=== PATIENT | female | born 1955 | race Caucasian/White ===

== ENCOUNTER → 2017-10-22 09:22 | Outpatient (CLI) | payer OTHER, SELFPAY ==
[2017-10-22 12:18] LABS: Anion Gap 8 (5-15); BUN 12 mg/dL (7-18); BUN/Creat Ratio 16.8 RATIO (10-20); Calcium,Total 8.9 mg/dL (8.5-10.1); Chloride 107 mmol/L (98-107); Creatinine, Serum 0.71 mg/dL (0.55-1.02); EST Glomerular Filtration Rate 88 mL/min (>60); Est Glom Filt Rate - Afr Amer 107 mL/min (>60); Glucose 105 mg/dL (74-106); Potassium 3.8 mmol/L (3.5-5.1); Sodium Level 140 mmol/L (136-145)
== END ==
PROVIDERS: Family Provider Family Medicine; PCP Family Medicine; Visit Provider Family Medicine
DX: I10 Essential (primary) hypertension (principal)
CPT/HCPCS: 36415; 80048

== ENCOUNTER → 2018-01-07 09:10 | Outpatient (CLI) | payer OTHER, SELFPAY ==
[2017-12-31 11:02] LABS: Absolute Lymphocyte Count 2.48 X10^3/ul (0.83-4.51); Absolute Neutrophil Count 3.2 X10^3/uL (2.0-7.7); Basophil# 0.03 X10^3/uL; Basophil% 0.5 % (0-1); Eosinophil# 0.21 X10^3/uL; Eosinophils% 3.3 % (0-5); Hematocrit 37.2 % (37-47); Lymphocyte # 2.48 X10^3/ul (4.0); Lymphocyte % 38.4 % (19-41); Mean Corp Hgb Conc 32.3 g/gl (32-36); Mean Corpuscular Hgb 26.6 pg (27.0-32.0); Mean Corpuscular Volume 82.5 fL (81-99); Mean Platelet Vol. 9.7 fl (6.2-12.0); Monocyte# 0.55 X10^3/uL; Monocyte% 8.5 % (0-10); Neutrophil # 3.16 X10^3/uL (2.7-7.7); Platelet Count 474 K/mm3 (150-450); RBC Distribution Width SD 41.2 fl (35.1-43.9); Red Blood Count 4.51 M/mm3 (4.2-5.4); White Blood Count 6.5 K/mm3 (4.4-11.0)
[2017-12-31 11:08] LABS: POSITIVE COUNT NO; POSITIVE DIFFERENTIAL NO; POSITIVE MORPHOLOGY NO
[2017-12-31 11:14] LABS: ALB/GLOB Ratio 0.7 RATIO (0.9-2.4); AST(SGOT) 11 U/L (15-37); Alanine Aminotransfer ALT/SGPT 18 U/L (13-56); Albumin, Serum 3.3 g/dL (3.2-5.0); Alkaline Phosphatase 74 U/L (45-117); Anion Gap 9 (5-15); BUN 16 mg/dL (7-18); BUN/Creat Ratio 20.7 RATIO (10-20); Calcium,Total 9.4 mg/dL (8.5-10.1); Chloride 105 mmol/L (98-107); Cholesterol 178 mg/dL (200); Creatinine, Serum 0.77 mg/dL (0.55-1.02); EST Glomerular Filtration Rate 80 mL/min (>60); Est Glom Filt Rate - Afr Amer 97 mL/min (>60); Globulin 4.5 g/dL (2.2-4.2); Glucose 89 mg/dL (74-106); High Density Lipoprotein 47 mg/dL; Potassium 4.4 mmol/L (3.5-5.1); Protein, Total 7.8 g/dL (6.4-8.2); Sodium Level 141 mmol/L (136-145); Triglycerides 137 mg/dL; Very Low Density Lipoprotein 27 mg/dL (5-40)
--- NOTE | 2018-01-07 09:10 | DT_ITS ---
This patient was seen during an EMR downtime January 03, 2018 - January 10, 2018. This patient may have a combination of paper and electronic documentation or all paper documentation. All documentation is viewable within the e-chart portion of [employer] for each patient visit.
[2018-01-07 14:28] LABS: Rheumatoid Factor < 10.0 IU/mL (<15)
[2018-01-07 15:02] LABS: Hemoglobin 11.8 g/dl (12.0-15.0); Red Blood Count 4.41 M/mm3 (4.2-5.4)
[2018-01-07 15:03] LABS: Absolute Lymphocyte Count 2.78 X10^3/ul (0.83-4.51); Absolute Neutrophil Count 3.2 X10^3/uL (2.0-7.7); Basophil# 0.02 X10^3/uL; Basophil% 0.3 % (0-1); Eosinophil# 0.22 X10^3/uL; Eosinophils% 3.2 % (0-5); Hematocrit 36.6 % (37-47); Lymphocyte # 2.78 X10^3/ul (4.0); Mean Corp Hgb Conc 32.2 g/gl (32-36); Mean Corpuscular Hgb 26.8 pg (27.0-32.0); Mean Platelet Vol. 9.2 fl (6.2-12.0); Monocyte# 0.71 X10^3/uL; Monocyte% 10.2 % (0-10); Neutrophil # 3.21 X10^3/uL (2.7-7.7); Neutrophil % 46.2 % (47-70); POSITIVE COUNT NO; POSITIVE DIFFERENTIAL NO; POSITIVE MORPHOLOGY NO; Platelet Count 408 K/mm3 (150-450); RBC Distribution Width CV 14.3 % (11.6-14.6); RBC Distribution Width SD 42.9 fl (35.1-43.9)
[2018-01-14 16:11] LABS: Anti-Centromere B Ab <0.2 AI (0.0-0.9); Anti-Scleroderma-70 AB <0.2 AI (0.0-0.9); RNP Ab <0.2 AI (0.0-0.9); SJOGREN'S Anti-SS-A test < 0.2 AI (0.0-0.9); SJOGREN'S Anti-SS-B test < 0.2 AI (0.0-0.9); Smith Ab <0.2 AI (0.0-0.9)
[2018-01-14 18:15] LABS: CCP IgG Antibodies 9 units (0-19)
[2018-01-15 14:23] LABS: Anti-dsDNA Ab <1 IU/mL (0-9)
== END ==
PROVIDERS: Family Provider Family Medicine; PCP Family Medicine; Visit Provider Family Medicine
DX: Z00.00 Encounter for general adult medical examination without abnormal findings (principal); I10 Essential (primary) hypertension; D47.3 Essential (hemorrhagic) thrombocythemia; M25.50 Pain in unspecified joint
CPT/HCPCS: 36415; 80053; 80061; 85025; 86038; 86140; 86200; 86225; 86235; 86431

== ENCOUNTER 2018-07-13 08:03 | Inpatient (IN) | payer OTHER, SELFPAY ==
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
[2018-07-04 13:52] VITALS: BP 121/86; PULSE 71; RESP 16; TEMP 36.9; O2SAT 97; BMI 24.3
--- NOTE | 2018-07-04 13:57 | SDCEKG_ITS ---
Test Reason : Blood Pressure : / mmHG Vent. Rate : 067 BPM Atrial Rate : 067 BPM P-R Int : 164 ms QRS Dur : 082 ms QT Int : 376 ms P-R-T Axes : 060 065 043 degrees QTc Int : 397 ms Normal sinus rhythm Normal ECG Confirmed by JUAN ANTONIO RODGERS, MIRNA ([id number]), editor publications MARIXA BOLES ([id number]) on 07/05/2018 3:27:21 PM Referred By: Cam Garcia Confirmed By:MIRNA ROMANO MD
[2018-07-04 14:50] LABS: Absolute Lymphocyte Count 2.74 X10^3/ul (0.83-4.51); Absolute Neutrophil Count 3.8 X10^3/uL (2.0-7.7); Basophil# 0.03 X10^3/uL; Basophil% 0.4 % (0-1); Eosinophil# 0.19 X10^3/uL; Eosinophils% 2.6 % (0-5); Hemoglobin 10.9 g/dl (12.0-15.0); Lymphocyte # 2.74 X10^3/ul (4.0); Lymphocyte % 37.5 % (19-41); Mean Corp Hgb Conc 32.1 g/gl (32-36); Mean Corpuscular Hgb 26.9 pg (27.0-32.0); Mean Platelet Vol. 9.4 fl (6.2-12.0); Monocyte# 0.56 X10^3/uL; Monocyte% 7.7 % (0-10); Neutrophil # 3.76 X10^3/uL (2.7-7.7); Neutrophil % 51.5 % (47-70); Platelet Count 459 K/mm3 (150-450); RBC Distribution Width CV 14.4 % (11.6-14.6); RBC Distribution Width SD 43.4 fl (35.1-43.9); Red Blood Count 4.05 M/mm3 (4.2-5.4); White Blood Count 7.3 K/mm3 (4.4-11.0)
[2018-07-04 14:57] LABS: POSITIVE COUNT NO; POSITIVE DIFFERENTIAL NO; POSITIVE MORPHOLOGY NO
[2018-07-04 15:09] LABS: Anion Gap 9 (5-15); BUN 21 mg/dL (7-18); BUN/Creat Ratio 20.2 RATIO (10-20); Calcium,Total 9.1 mg/dL (8.5-10.1); Chloride 105 mmol/L (98-107); Creatinine, Serum 1.04 mg/dL (0.55-1.02); EST Glomerular Filtration Rate 57 mL/min (>60); Est Glom Filt Rate - Afr Amer 69 mL/min (>60); Estimated Creatinine Clearance 48.43 ml/min; Glucose 144 mg/dL (74-106); Potassium 3.8 mmol/L (3.5-5.1); Sodium Level 139 mmol/L (136-145)
--- NOTE | 2018-07-06 11:26 | CASEMGMT ---
Attempted to call patient on cell phone, . Female answered phone and hung up on this nurse when this nurse asked if Kelsey was available. Gloria Kim LPN Clinical Support
[2018-07-13] VITALS (11 sets, daily range): BP systolic 92–136; BP diastolic 49–89; PULSE 49–84; RESP 16–18; TEMP 36.1–37.1; O2SAT 98–100; BMI 24.3; BMI 23.9
--- NOTE | 2018-07-13 | HIP_PTH ---
PATIENT: DEEPA WARD LOC: MS3 U#:[id number] AGE/SX: 63/F ROOM: [facility] [place] RE07/13/[address]: Dr. Cam Garcia MD : [id number] BED: 1 DIS: 07/14/2018 SPEC #: [id number] RECD: 07/13/18 15:14 STATUS: BERTRAND REAron #: [id number] NIHCOLE: 07/13/18 00:[address]: Cam Garcia DEPT: SURGICAL PATHOLOGY RECD BY: Chauncey Dalal ENTERED: 07/13/18 15:14 SP TYPE: TOTAL HIP OTHR DR: Dr. Ty Carter DO Tissues: Hip, NOS Procedures: Decalcification bone/plaque Surgery Specimen Level IV HEADER OPERATION: Left total hip anterior approach PRE-OP DIAGNOSIS: Severe left hip osteoarthritis TISSUE SUBMITTED: Femoral head left MICROSCOPIC DIAGNOSIS Left femoral head, total hip resection: Severe degenerative joint disease. Mild synovial hyperplasia and associated mild chronic inflammation. AM:uvaldo 07/20/18 MICROSCOPIC DESCRIPTION Slides are reviewed. GROSS DESCRIPTION Received is one container designated femoral head left. The specimen consists of a deformed femoral head measuring 4.5 x 5 x 3 cm. The portion of femoral neck measures 0.5 cm in greatest length. A small piece of soft tissue attached to the femoral head measures 3 x 2.5 x 0.3 cm. The articular surface displays prominent osteophyte formation, eburnation and bone erosion. Commercial Teller sections are submitted in two cassettes as follows: 1 - soft tissue, 2 - bone after decalcification. / SJ:uvaldo 07/13/18 TC:5 CPT: 04819, 49706
--- NOTE | 2018-07-13 07:22 | RAD_ITS ---
STUDY: X-RAY - LEFT HIP REASON FOR EXAM: Female, 63 years old. Left hip replacement. TECHNIQUE: 2 views of the hip. COMPARISON: None. FINDINGS: The patient is status post left total hip replacement. There is good alignment. Postoperative soft tissue changes. RAD/Hip Min 2 Views (Portable) IMPRESSION: Status post left total hip replacement. There is good alignment. Postoperative soft tissue changes. Electronically Signed: Jasper Gibson MD at 13:00 EST Tel [phone], Service support ,
[2018-07-13] MEDS: Scopolamine 1mg/72hr Patch 1 PATCH TD (07:30)
[2018-07-13] MEDS: Acetaminophen 500 MG Tablet 1000 MG PO ×3 (08:53→21:52)
[2018-07-13] MEDS: Celecoxib 200 MG Capsule 400 MG PO (08:53)
[2018-07-13] MEDS: Lactated Ringers 1,000 ML 999 ML IV (09:20)
--- NOTE | 2018-07-13 10:55 | RAD_ITS ---
STUDY: X-RAY - LEFT HIP REASON FOR EXAM: Female, 63 years old. Left hip replacement. TECHNIQUE: 2 views of the hip. COMPARISON: None. FINDINGS: Intraoperative imaging provided for left total hip replacement. There is good alignment. RAD/Hip 1 view with Pelvis IMPRESSION: Status post left total hip replacement. There is good alignment. Electronically Signed: Jasper Gibson MD at 12:52 EST Tel [phone], Service support ,
--- NOTE | 2018-07-13 11:20 | PCM.OPRPT ---
Report of Operation Date of Procedure: 07/13/18 Pre-Operative Diagnosis: Left hip primary osteoarthritis Post-Operative Diagnosis: Left hip primary osteoarthritis Surgery/Procedure Performed:: Left direct anterior total hip replacement Description of Surgical Findings:: Stable hip with equal leg lengths pediatric dentist: Jen Chavez Type of Anesthesia:: Spinal Anesthesiologist: Steven Fabian Special Medications: 600 mg clindamycin, 1 g TXA at incision, 1 g TXA closure, 10 mg Decadron, joint cocktail (5 mg Duramorph, 30 mL of 0.5% Ropivicaine, 1000 units of epinephrine, 30 mg of Toradol) Specimen's removed: Bony cuts were sent to pathology Estimated Blood Loss (mL): 200 Fluids Replaced: 800 mL crystalloid Description of Procedure: Components used: 1. Accolade 2 [place] femoral stem size 4 127? 2. [place] trident 2 acetabular shell size 48 mm 3. [place] X3 polyethylene neutral liner 4. [place] Biolox delta 36mm, 0mm femoral head Brief history operative indications: 63 yo F who failed conservative measures for their hip osteoarthritis. X-rays were consistent with osteoarthritis including joint space narrowing, osteophyte formation and subchondral cysts. Total hip replacement was discussed with the patient with risks and benefits including but not limited to blood loss, DVTs, PEs, neurovascular damage, dislocation, general risks of anesthesia including loss of life. Patient demonstrated an understanding medical clearance is obtained the patient was consented for surgery. Procedure: On the date of procedure the patient's L hip was marked in the preoperative area. Patient was then taken back to the operating room where anesthesia assumed control of the C-spine and airway and administered anesthetic. Patient was transferred to the operating table and placed in the supine position. The hips were placed at the break of the bed and a sacral bump was placed. The L lower extremity was then prepped out in a sterile fashion using chlorhexidine while the surgeon scrubbed. The PA was vital in the positioning of the patient. Upon reentering the room the L lower extremity was draped in the standard orthopedic fashion and the incision was marked. A timeout was called and everyone agreed upon the side, the site, the procedure be performed, antibody given, and patient's identity. At this time incision was made through skin, subcutaneous tissue, and fat down to fascia. The fascia was then incised and the TFL was retracted laterally. A retractor was placed on the lateral border of the femoral neck. Attention was directed to the inferior portion of the approach and all crossing vessels were identified and appropriately coagulated. A retractor was then placed on the medial portion of the femoral neck. The anterior capsule was then cleared of all soft tissue and then H shaped capsulotomy was made. The retractors were then placed inside the capsule. The femoral neck was identified and a cleanup cut was made. At this time a power corkscrew was used to remove the femoral head. Attention was then turned toward the acetabulum where the soft tissues were appropriately retracted and the acetabulum was sequentially reamed to 48 mm. A 48 mm cup was then selected and impacted into place. Acetabular liner was impacted into place and locking mechanism was verified. The position of the acetabular cup was then verified under live fluoroscopy. Attention was then turned to the femur. Soft tissue releases on the medial and lateral femoral neck were appropriately done, the leg was externally rotated and lateralized. A Toure retractor was placed medially and proximally to the greater trochanter this allowed appropriate visualization and exposure of the femoral canal. Rongeour was then used to remove excess lateral bone. A canal finder and entry broach were used to open the proximal canal. Once we verified we were down the femoral canal we subsequently broached up to a size 4 femur. The appropriate neck was placed in the previously selected head was trialed with a [] mm neck. Traction was pulled and the hip was reduced with internal rotation. Once it was appropriately reduced and stability was checked. There was minimal shuck, equal leg lengths and appropriate stability with hyperextension and external rotation as well as with 90? flexion and internal rotation. Fluoroscopy was then also used to verify the position of the components and leg lengths using the contralateral side for comparison. The trial components were then dislocated the proximal femur was again exposed and the components were removed from the wound. The final components were verified and opened. The wound was copiously irrigated out with normal saline. The acetabulum was checked for any residual debris. The final components were placed and impacted. Traction and internal rotation were again used to reduce the hip. After adequate reduction the hip remained stable with appropriate leg lengths. The final components were once again checked with live fluoroscopy and were found to be satisfactory. The wound was then copiously irrigated with normal saline once more, and hemostasis was obtained. Closure was then done using #1 Vicryl runner to close the fascia. A 2-0 vicryl interuppted sutures were used to close the subcutaneous skin. A 3-0 Monocryl and Steri-Strips were used for final skin closure. A Silverlon dressing was placed. Patient was awakened by anesthesia and transferred to the [facility]. Patient was then transferred to the PACU for recovery. Postoperative plan: Patient will get 24 hours postop antibiotics. Patient will get in-house physical therapy and will be weight-bear as tolerated. Patient will follow up in office in 2 weeks for a wound check and x-rays. Grafts/Implants Used: Roseanna Accolade 2, Trident 2 - Complications NONE - Admit VTE Documentation VTE Present on Admission: No VTE Mechan Device Prophylaxis: SCD's, Thigh High HILDA Hose VTE Pharm Prophylaxis ordered?: Yes
[2018-07-13] MEDS: Lactated Ringers 1,000 ML 125 ML IV ×2 (12:15→17:25)
[2018-07-13] MEDS: Senna/Docusate Sodium 1 Tablet 2 TABLET PO ×2 (13:52→21:52)
[2018-07-13] MEDS: Famotidine 20 MG Tablet PO (13:52)
[2018-07-13] MEDS: Aspirin 81 MG TAB.CHEW PO (17:22)
[2018-07-13] MEDS: Loratadine 10 MG Tablet PO (21:52)
[2018-07-14 03:17] VITALS: BP 107/68; PULSE 57; RESP 14; TEMP 36.4; O2SAT 100
[2018-07-14] MEDS: Acetaminophen 500 MG Tablet 1000 MG PO ×2 (05:31→13:00)
[2018-07-14 05:43] LABS: Hematocrit 31.3 % (37-47); Hemoglobin 9.9 g/dl (12.0-15.0); Mean Corp Hgb Conc 31.6 g/gl (32-36); Mean Corpuscular Hgb 26.8 pg (27.0-32.0); Mean Corpuscular Volume 84.8 fL (81-99); Mean Platelet Vol. 9.3 fl (6.2-12.0); Platelet Count 350 K/mm3 (150-450); RBC Distribution Width CV 14.4 % (11.6-14.6); RBC Distribution Width SD 42.8 fl (35.1-43.9); Red Blood Count 3.69 M/mm3 (4.2-5.4); White Blood Count 7.9 K/mm3 (4.4-11.0)
[2018-07-14 05:53] LABS: Scan Indicated on CBC? Y/N NO
[2018-07-14 06:04] LABS: Anion Gap 8 (5-15); BUN 19 mg/dL (7-18); BUN/Creat Ratio 25.3 RATIO (10-20); Calcium,Total 8.6 mg/dL (8.5-10.1); Chloride 107 mmol/L (98-107); Creatinine, Serum 0.75 mg/dL (0.55-1.02); EST Glomerular Filtration Rate 83 mL/min (>60); Est Glom Filt Rate - Afr Amer 101 mL/min (>60); Estimated Creatinine Clearance 69.98 ml/min; Glucose 98 mg/dL (74-106); Potassium 3.9 mmol/L (3.5-5.1); Sodium Level 143 mmol/L (136-145)
[2018-07-14 07:55] VITALS: BP 105/63; PULSE 50; RESP 18; TEMP 36.3; O2SAT 98
[2018-07-14] MEDS: Vitamin B Comp W-C Capsule 1 CAP PO (07:57)
[2018-07-14] MEDS: Senna/Docusate Sodium 1 Tablet 2 TABLET PO (07:57)
[2018-07-14] MEDS: amLODIPine 5 MG Tablet PO (07:58)
[2018-07-14] MEDS: Aspirin 81 MG TAB.CHEW PO (07:59)
[2018-07-14] MEDS: Famotidine 20 MG Tablet PO (07:59)
[2018-07-14] MEDS: Meloxicam 15 MG Tablet PO (07:59)
[2018-07-14] MEDS: oxyCODONE 5 MG Tablet PO ×2 (08:01→13:00)
--- NOTE | 2018-07-14 10:25 | CASEMGMT ---
PATRICIA LEE Face to Face with patient for initial transition planning/care coordination assessment. RN CM introduced self and role at [facility]. Patient lying in bed, alert and oriented. Patient willing to participate in assessment and is able to answer all questions appropriately. Care providers, pharmacy, and demographics verified. Patient wishes to discharge home and is setup with [facility] for outpatient therapy. Patient states she has no further needs or concerns at this time. CM to follow for discharge planning needs that may arise. Disposition Plan: Patient to discharge home with outpatient therapy, family support, and follow-up plans in place. May ALVA, RN, CM
--- NOTE | 2018-07-14 11:00 | PCM.PN.ORT ---
Subjective: The patient was sitting in bedside chair upon examination. Patient denies any chest pain, shortness of breath, dizziness, lightheadedness, nausea or vomiting, or calf pain. Pain is controlled on medications. No adverse overnight events. Overall patient is doing very well. She has participated in physical therapy and has done well. Patient is ready to go home today. Objective: Vital signs stable and afebrile. Patient is able to plantarflex and dorsiflex actively. Sensation is intact to light touch to saphenous, sural, superficial and deep peroneal, and tibial distribution. Dressing is clean dry and intact. Negative Homans bilaterally, negative signs and symptoms of DVT. - Physical Exam General: Alert, Oriented x3, Cooperative, No apparent distress Vital Signs Temp Pulse Resp BP Pulse Ox 97.4 F L 50 L 18 105/63 98 07/14/18 07:55 07/14/18 07:55 07/14/18 07:55 07/14/18 07:55 07/14/18 07:55 Oxygen Delivery Method Room Air Weight: 65.3 kg Body Mass Index (BMI) 23.9 Intake and Output for Last 24 Hours 07/12/18 07/13/18 07/14/18 23:59 23:59 23:59 Intake Total 1100 / 1100 1456 / 1456 Output Total 1800 / 1800 Balance 1100 / 1100 -344 / -344 Laboratory Tests Past 24 Hrs 07/14/18 07/14/18 05:00 05:00 WBC 7.9 RBC 3.69 L Hgb 9.9 L Hct 31.3 L MCV 84.8 MCH 26.8 L MCHC 31.6 L RDW 14.4 RDW Differential 42.8 Plt Count 350 MPV 9.3 Sodium 143 Potassium 3.9 Chloride 107 Carbon Dioxide 28.0 Anion Gap 8 BUN 19 H Creatinine 0.75 Estim Creat Clear Calc 69.98 Est GFR (MDRD) Af Amer 101 Est GFR (MDRD) Non-Af 83 BUN/Creatinine Ratio 25.3 H Glucose 98 Calcium 8.6 Medical Necessity - Tobacco Use Smoking Status: Never smoker Tobacco Use: Non-smoker Assessment/Plan All Active Problems Screen for colon cancer (Acute) HTN (hypertension) (Acute) 1. S/P left direct anterior total hip arthroplasty POD #1 2. Continue Pain Medications: Tylenol and OxyIR 3. DVT Prophylaxis: Aspirin 81 mg twice daily with food for 4 weeks postoperatively 4. PT/OT: Weightbearing as tolerated 5. H & H: 9.9/31.3, asymptomatic 6. Encouraged Incentive Spirometry 7. Disposition: Orthopedically stable, plan is for discharge home today. Pain is well controlled and patient tolerated physical therapy. Prescriptions will be E scribed to [facility]. Patient will follow-up per postop instructions.
--- NOTE | 2018-07-14 11:10 | DCINST_ITS ---
Discharge Activity: May Not Drive - while taking narcotic pain medications. May shower in (days): 1 - Turned dressing away from water Ice area for (Minutes): 20 - Every 1-2 hours while awake Weight Bearing Status: Weight bearing as tolerated Elevate: Operative Extremity Additional Activity Instructions:: Wear elastic stockings for 2 weeks. DO NOT use alcohol with narcotic pain medication. DO NOT make important decisions while taking narcotic medication. If you have problems with taking your medication (rash, itching, nausea, etc.) call the office at once. Call your doctor if your incision/area has: Increased Pain/ Swelling, Increased Redness, Foul Smelling Discharge Call your doctor if you observe: Fever of 101 or Higher Remove Dressing in (days):: 4 - Okay to remove dressing on July 18, 2018 Additional Instructions: Follow [facility] postop instructions. Meloxicam 7.5 mg twice daily with food for 4 weeks. Do not take any other anti- inflammatories or your meloxicam 15 mg. Allergies/Adverse Reactions: Allergies Penicillins Adverse Reaction (Verified 07/04/18 13:38) Diarrhea Bndosme-Pym-Uvk Reductase Inhibitor Adverse Reaction (Verified 07/04/18 13:38) Other Medications to take at Discharge Cholecalciferol (Vitamin D3) [Vitamin D3] 1,000 unit PO DAILY 02/13/16 Vitamin B Comp W-C [Allbee W/C Caplet, Thera B Comp/C] 1 capsule PO DAILY 02/14/16 Cetirizine HCl [Zyrtec] 10 mg PO QHS 08/04/17 Metoprolol Tartrate [Lopressor (beta isaura)] 50 mg PO DAILY 08/04/17 Amlodipine [Norvasc] 5 mg PO DAILY 07/04/18 Acetaminophen [Tylenol Extra Strength] 1,000 mg PO Q8H PRN 14 Days tablet 07/14/18 Aspirin [Aspirin, Baby] 81 mg PO BIDCM #60 tab.chew 07/14/18 Famotidine [Pepcid] 20 mg PO DAILY #30 tablet 07/14/18 Meloxicam [Mobic] 7.5 mg PO BIDCM #60 tablet 07/14/18 Oxycodone [Oxyir] 5 - 10 mg PO Q4H PRN PRN 5 Days #60 tablet 07/14/18 Senna/Docusate Sodium [Senokot-S] 2 tablet PO BID #20 tablet 07/14/18 The following prescriptions were given: Oxycodone [Oxyir] 5 - 10 mg PO Q4H PRN PRN 5 Days #60 tablet PRN Reason: Mod-Severe Pain (-05/11) Acetaminophen [Tylenol Extra Strength] 1,000 mg PO Q8H PRN 14 Days tablet Famotidine [Pepcid] 20 mg PO DAILY #30 tablet Aspirin [Aspirin, Baby] 81 mg PO BIDCM #60 tab.chew Meloxicam [Mobic] 7.5 mg PO BIDCM #60 tablet Senna/Docusate Sodium [Senokot-S] 2 tablet PO BID #20 tablet Primary Care Physician: Ty Carter DO [Primary Care Provider] - Test Results: Test results from this visit will be discussed in further detail at your follow- up appointment, if applicable. Please Follow Up With: [facility] When: 07/18/18 @ 2:30 with Bharati Please Follow Up With: Camden Hart PA-C When: 07/28/18 @ 4:00 pm
[2018-07-14 12:58] VITALS: BP 120/62; PULSE 55; RESP 16; TEMP 36.4; O2SAT 96
--- OUTSIDE RECORDS SUMMARY | 2018-08-29 03:11 | XMS RPT_ITS ---
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 Left hip tenderness to palpation of the lateral hip. Patient does have groin pain with range of motion. Hip range of motion: 80 flexion, 10 internal rotation, 10 external rotation. Patient has significant crepitus and pain with range of motion. Decreased strength in the left hip. There is a 1 cm shorter left leg. Sensation intact to light touch. Neurovascularly intact. IMAGING STUDIES: X-rays of the hips were obtained on June 10, 2018 which does show joint space narrowing, subchondral sclerosis, subchondral cyst formation, flattening of the femoral head and osteophyte formation consistent with severe osteoarthritis on the left. IMPRESSION: 1. Severe left hip osteoarthritis 2. Hypertension 3. History of rheumatic fever PLAN: Dr. Cam Garcia did discuss and review with the patient all treatment options including surgical versus nonsurgical options. Patient does wish to proceed with the above-stated procedure. Potential risks, benefits, and complications of the procedure were discussed in detail including but not limited to , infection, nerve and blood vessel damage, persistent pain, numbness, tingling, paresthesias, blood clot, pulmonary embolism, and requirement for possible further surgery. The patient expressed full understanding and has no further questions for the doctor. Patient does agree to proceed with the above-stated procedure and has signed the surgery consent form. This dictation was created using voice recognition software. Phonetic and/or grammatical errors may exist.. ___ I have re-examined the patient. There are no clinical changes since date of exam. ___ See progress notes for changes. ___ Dictated on admission Date: Time: Signature: 11/30/18 2207 <Electronically signed by Camden Hart PA-C> Date Camden Hart PA-C Cosigner Signature: Date (if applicable) CC: Taye Carter DO; Camden BUCK Signed PROGRESS Observed: 05/16/2018 Status: COMPLETED Source: [place] 1:53 PM [facility] [place] REPOSITORY HNO ID: [id number] Author: Cam Workman Service: (none) Author Type: Physician Type: Progress Notes Filed: 05/16/2018 1:54 PM Note Text: History: Deepa Blue, a 63 year old female with known L ear perf, presents for f/up L perf. No drainage. L drainage 05/17. Resolved with tobradex. L ear drainage 09/17. Used tobradex for 1 wk. No more drainage. Did well from 01/14-09/17. Drainage 01/14 - used tobradex 1 wk. No more drainage. Drainage 07/14. CX 07/24/13: no growth. Completed tobradex 1 wk ago. Dry. CCHA applied 07/20/13 - still drained with pres when tried CCHA. H/o recurrent L ear drainage. Did well after CCHA applied 02/24/13, 04/20/13 until early 07/14 - moist. H/o drainage about 2 per wk - prior to 02/11. S/p R tympanoplasty '71 - R hearing always worse than L. Denies dizziness, ear pressure, pain, nasal congestion, runny-nose, post-nasal drip. No history of noise exposure. No history of ear trauma. No history of allergies. PE: Alert; oriented; well-developed; no apparent distress. Normal voice; normal communication. Eyes: EOMI, pupils symmetric and reactive bilaterally. Ears: R: Mod wax - cleaned. TM thickened. Dry. L: Mod wax cleaned. Dry. Small perf ant-inf. No EAC and TM erythema. Impression: Small chronic perf L ear. Dry last 10 mos. F/up 2 mos. Did well with CCHA for while but persistent drainage after CCHA 07/14. CNOV Observed: 05/16/2018 Status: COMPLETED Source: [place] 1:45 PM [facility] REPOSITORY Office Visit (OTOLST) DEEPA BLUE I ([id number]) 1955 F Date Time Provider Department 05/16/18 1:45 PM CAM WORKMAN OTOLSPaola During your visit today, we recorded the following information about you: Cam Workman MD 05/16/2018 1:54 PM Signed History: Deepa Blue, a 63 year old female with known L ear perf, presents for f/up L perf. No drainage. L drainage 05/17. Resolved with tobradex. L ear drainage 09/17. Used tobradex for 1 wk. No more drainage. Did well from 01/14-09/17. Drainage 01/14 - used tobradex 1 wk. No more drainage. Drainage 07/14. CX 07/24/13: no growth. Completed tobradex 1 wk ago. Dry. CCHA applied 07/20/13 - still drained with pres when tried CCHA. H/o recurrent L ear drainage. Did well after CCHA applied 02/24/13, 04/20/13 until early 07/14 - moist. H/o drainage about 2 per wk - prior to 02/11. S/p R tympanoplasty '71 - R hearing always worse than L. Denies dizziness, ear pressure, pain, nasal congestion, runny-nose, post-nasal drip. No history of noise exposure. No history of ear trauma. No history of allergies. PE: Alert; oriented; well-developed; no apparent distress. Normal voice; normal communication. Eyes: EOMI, pupils symmetric and reactive bilaterally. Ears: R: Mod wax - cleaned. TM thickened. Dry. L: Mod wax cleaned. Dry. Small perf ant-inf. No EAC and TM erythema. Impression: Small chronic perf L ear. Dry last 10 mos. F/up 2 mos. Did well with CCHA for while but persistent drainage after CCHA 07/14. 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 METOPROLOL SUCCINATE ER 50 MG* Take 1 tablet by mouth once d* AMLODIPINE 5 MG TABLET Take 1 tablet by mouth once d* MUPIROCIN 2 % TOPICAL CREAM Apply 1 application to affect* TTRVLEKJBPRH-HBAYAHAW-EKDNNZ * Take 1 tablet by mouth once d* * B-COMPLEX WITH VITAMIN C TABL* Take one(1) tablet daily. * CHOLECALCIFEROL (VITAMIN D3) * 2 cap daily TOBRAMYCIN 0.3 %-DEXAMETHASON* 5 drops to left ear twice a d* METOPROLOL TARTRATE 25 MG TAB* Take 25 mg by mouth twice viktoria* HYDROCORTISONE 2.5 % TOPICAL * Apply 1 application to affect* * FISH OIL 500 MG CAPSULE 2 cap daily Problem List As Of Date 05/16/2018 Noted Resolved SEBACEOUS CYST [L72.3] INVALID FOR* RHEUMATIC HEART DISEASE UNSPECIFIED [I09.9] INVALID FOR* DIARRHEA NOS [R19.7] INVALID FOR* INT HEMORRHOID W/O COMPL [K64.8] INVALID FOR* HYPERTENSION NOS [I10] INVALID FOR* MITRAL VALVE DISORDER [I05.9] HYPERLIPIDEMIA NEC/NOS [E78.5] INT DERANGEMENT KNEE NEC [M23.8X9] INVALID FOR* Bursitis, Hip [M70.70] INVALID FOR* Elevated BP [UTL8735] INVALID FOR* Central perforation of tympanic membrane of lef*INVALID FOR* Encounter Status:Closed by CAM WORKMAN MD on 05/16/18 PROGRESS Observed: 03/08/2018 Status: COMPLETED Source: [place] 1:15 PM [facility] REPOSITORY HNO ID: [id number] Author: Cam Workman Service: (none) Author Type: Physician Type: Progress Notes Filed: 03/08/2018 1:15 PM Note Text: History: Deepa Blue, a 62 year old female with known L ear perf, presents for f/up L perf. No drainage. L drainage 05/17. Resolved with tobradex. L ear drainage 09/17. Used tobradex for 1 wk. No more drainage. Did well from 01/14-09/17. Drainage 01/14 - used tobradex 1 wk. No more drainage. Drainage 07/14. CX 07/24/13: no growth. Completed tobradex 1 wk ago. Dry. CCHA applied 07/20/13 - still drained with pres when tried CCHA. H/o recurrent L ear drainage. Did well after CCHA applied 02/24/13, 04/20/13 until early 07/14 - moist. H/o drainage about 2 per wk - prior to 02/11. S/p R tympanoplasty '71 - R hearing always worse than L. Denies dizziness, ear pressure, pain, nasal congestion, runny-nose, post-nasal drip. No history of noise exposure. No history of ear trauma. No history of allergies. PE: Alert; oriented; well-developed; no apparent distress. Normal voice; normal communication. Eyes: EOMI, pupils symmetric and reactive bilaterally. Ears: R: Mod wax - cleaned. TM thickened. Dry. L: Mod wax cleaned. Dry. Small perf ant-inf. No EAC and TM erythema. Impression: Small chronic perf L ear. Dry last 8 mos. F/up 2 mos. Did well with CCHA for while but persistent drainage after CCHA 07/14. CNOV Observed: 03/08/2018 Status: COMPLETED Source: [place] 12:55 PM [facility] REPOSITORY Office Visit (OTOLST) DEEPA BLUE I ([id number]) 1955 F Date Time Provider Department 03/08/18 12:55 PM CAM WORKMAN OTOLSP[facility]ola During your visit today, we recorded the following information about you: Cam Workman MD 03/08/2018 1:15 PM Signed History: Deepa Blue, a 62 year old female with known L ear perf, presents for f/up L perf. No drainage. L drainage 05/17. Resolved with tobradex. L ear drainage 09/17. Used tobradex for 1 wk. No more drainage. Did well from 01/14-09/17. Drainage 01/14 - used tobradex 1 wk. No more drainage. Drainage 07/14. CX 07/24/13: no growth. Completed tobradex 1 wk ago. Dry. CCHA applied 07/20/13 - still drained with pres when tried CCHA. H/o recurrent L ear drainage. Did well after CCHA applied 02/24/13, 04/20/13 until early 07/14 - moist. H/o drainage about 2 per wk - prior to 02/11. S/p R tympanoplasty '71 - R hearing always worse than L. Denies dizziness, ear pressure, pain, nasal congestion, runny-nose, post-nasal drip. No history of noise exposure. No history of ear trauma. No history of allergies. PE: Alert; oriented; well-developed; no apparent distress. Normal voice; normal communication. Eyes: EOMI, pupils symmetric and reactive bilaterally. Ears: R: Mod wax - cleaned. TM thickened. Dry. L: Mod wax cleaned. Dry. Small perf ant-inf. No EAC and TM erythema. Impression: Small chronic perf L ear. Dry last 8 mos. F/up 2 mos. Did well with CCHA for while but persistent drainage after CCHA 07/14. 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 METOPROLOL SUCCINATE ER 50 MG* Take 1 tablet by mouth once d* AMLODIPINE 5 MG TABLET Take 1 tablet by mouth once d* * B-COMPLEX WITH VITAMIN C TABL* Take one(1) tablet daily. * CHOLECALCIFEROL (VITAMIN D3) * 2 cap daily * FISH OIL 500 MG CAPSULE 2 cap daily TOBRAMYCIN 0.3 %-DEXAMETHASON* 5 drops to left ear twice a d* METOPROLOL TARTRATE 25 MG TAB* Take 25 mg by mouth twice viktoria* HYDROCORTISONE 2.5 % TOPICAL * Apply 1 application to affect* MUPIROCIN 2 % TOPICAL CREAM Apply 1 application to affect* RBUWCIFPILFZ-LMFFPJLL-CGFUAE * Take 1 tablet by mouth once d* Problem List As Of Date 03/08/2018 Noted Resolved SEBACEOUS CYST [L72.3] INVALID FOR* RHEUMATIC HEART DISEASE UNSPECIFIED [I09.9] INVALID FOR* DIARRHEA NOS [R19.7] INVALID FOR* INT HEMORRHOID W/O COMPL [K64.8] INVALID FOR* HYPERTENSION NOS [I10] INVALID FOR* MITRAL VALVE DISORDER [I05.9] HYPERLIPIDEMIA NEC/NOS [E78.5] INT DERANGEMENT KNEE NEC [M23.8X9] INVALID FOR* Bursitis, Hip [M70.70] INVALID FOR* Elevated BP [ULP6161] INVALID FOR* Central perforation of tympanic membrane of lef*INVALID FOR* Encounter Status:Closed by CAM WORKMAN MD on 03/08/18 DOWNTIME REPORT Observed: 01/20/2018 Status: F Source: [place] 11:44 AM [facility] REPOSITORY [facility] Medical Records Department [address] [place] [address] Downtime Report MR#: [id number] Acct: [id number] Name: LIZZIENICKDEEPA FONTAINE Milagros Rep #: [id number] : 1955 62 From: Colby Boles PCP: Taye Carter DO Status: REG CLI This patient was seen during an EMR downtime January 03, 2018 - January 10, 2018. This patient may have a combination of paper and electronic documentation or all paper documentation. All documentation is viewable within the e-chart portion of [facility] for each patient visit. CRP Collected: 01/07/2018 Status: F Source: [place] 9:12 AM [facility] REPOSITORY Order Comment: 56 TYPE CODE TESTS RESULT OUT OF RANGE REFERENCE UNITS LAB L501.6710 0.0-3.0 mg/L High 39.20 C-REACTIVE PROT Result Comment: C-Reactive Protein (CRP) provides useful information for the diagnosis, therapy and monitoring of inflammatory processes and associated diseases. For the evaluation of Relative Risk for Cardiovascular Disease, a High Sensitivity CRP (HSCRP) should be ordered. Performed By: #### L501.6710, L505.7010 #### [facility] [address] [place], [place], [address] RHEUMATOID FACTOR Collected: 01/07/2018 Status: F Source: [place] 9:12 AM [facility] REPOSITORY Order Comment: 56 TYPE CODE TESTS RESULT OUT OF RANGE REFERENCE UNITS LAB L505.7010 <15 IU/mL Normal RHEUMATOID FAC < 10.0 Performed By: #### L501.6710, L505.7010 #### [facility] [address] [place], [address] CBC W/DIFF, AUTOMATED Collected: 01/07/2018 Status: F Source: [place] 9:12 AM [facility] REPOSITORY TYPE CODE TESTS RESULT OUT OF RANGE REFERENCE UNITS LAB L100.1000 4.4-11.0 K/mm3 Normal WBC 7.0 LAB L100.1200 4.2-5.4 M/mm3 Normal RBC 4.41 LAB L100.1300 12.0-15.0 g/dl Low HGB 11.8 LAB L100.1400 37-47 % Low HCT 36.6 LAB L100.1500 81-99 fL Normal MCV 83.0 LAB L100.1600 27.0-32.0 pg Low MCH 26.8 LAB L100.1700 32-36 g/gl Normal MCHC 32.2 LAB L100.1810 11.6-14.6 % Normal RDW CV 14.3 LAB L100.1820 35.1-43.9 fl Normal RDW SD 42.9 LAB L100.1900 150-450 K/mm3 Normal PLT 408 LAB L100.2000 6.2-12.0 fl Normal MPV 9.2 LAB L100.2100 47-70 % Low NEUT% 46.2 LAB L100.2200 19-41 % Normal LY% 40.0 LAB L100.2300 0-10 % High MONO% 10.2 LAB L100.2400 0-5 % Normal EO% 3.2 LAB L100.2500 0-1 % Normal BASO% 0.3 LAB L100.2550 0.0-0.9 % Normal IM GRAN % 0.100 Result Comment: IG% - Immature Granulocytes (promyelocytes, myelocytes and metamyelocytes) > 1% indicates that a LEFT SHIFT is Present. LAB L100.2620 2.0-7.7 X10 3/uL Normal Absolute Neut 3.2 LAB L100.2720 0.83-4.51 X10 3/ul Normal Absolute Lymph 2.78 Performed By: #### L100.0100 #### [facility] [address] [place], [place], [address] KELLIE W/ REFLEX MULT Collected: 01/07/2018 Status: F [facility] REPOSITORY Order Comment: Specimen Comment: A duplicate report has been generated due to demographic Specimen Comment: updates. TYPE CODE TESTS RESULT OUT OF RANGE REFERENCE UNITS LAB L3100.5475 Normal KELLIE-DIRECT Result Comment: TEST RESULT UNITS REF INTERVAL Sjogren's Ab, Anti-SS-A/-SS-B Sjogren's Anti-SS-A <0.2 AI 0.0 - 0.9 Sjogren's Anti-SS-B <0.2 AI 0.0 - 0.9 Antiextractable Nuclear Ag CREDIT REPORTING CLERK Antibodies <0.2 AI 0.0 - 0.9 Pal Antibodies <0.2 AI 0.0 - 0.9 Anti-dsDNA Antibodies Anti-DNA (DS) Ab Qn <1 IU/mL 0 - 9 Negative <5 Equivocal 5 - 9 Positive >9 Antiscleroderma-70 Antibodies <0.2 AI 0.0 - 0.9 Anti-Centromere B Antibodies <0.2 AI 0.0 - 0.9 KELLIE w/Reflex if Positive KELLIE Direct Negative Negative TESTING PERFORMED AT [facility]. ORIGINAL REPORT ON FILE IN LAB CONTAINS ADDITIONAL TEST SITE INFORMATION. LAB L3100.5500 0-9 IU/mL Normal dsDNA AB <1 Result Comment: Negative <5 Equivocal 5 - 9 Positive >9 LAB L3100.9200 0.0-0.9 AI Normal Anti-SS-A < 0.2 LAB L3100.9300 0.0-0.9 AI Normal Anti-SS-B < 0.2 LAB L3410.0700 0.0-0.9 AI Normal ANTISCLER <0.2 LAB L3410.1200 0.0-0.9 AI CREDIT REPORTING CLERK Ab Normal <0.2 LAB L3410.1300 0.0-0.9 AI PAL Ab Normal <0.2 LAB L3410.4010 0.0-0.9 AI Normal ANTI-CENT B <0.2 Performed By: #### L3100.5450 #### [facility] (refer to report for specific site) refer to report for address and phone number CCP IGG ANTIBODIES Collected: 01/07/2018 Status: F Source: [place] 9:12 AM [facility] REPOSITORY Order Comment: Specimen Comment: A duplicate report has been generated due to demographic Specimen Comment: updates. TYPE CODE TESTS RESULT OUT OF RANGE REFERENCE UNITS LAB L4600.0100 0-19 units Normal ANTI-CCP 9 138264 Result Comment: Negative <20 Weak positive 20 - 39 Moderate positive 40 - 59 Strong positive >59 Performed at: [address] [id number] Captain Waiter/Waitress: Adi Roberson MD, Phone: [phone] Performed By: #### L4600.0100 #### [facility] (refer to report for specific site) refer to report for address and phone number CBC W/DIFF, AUTOMATED Collected: 12/31/2017 Status: F Source: [place] 9:33 AM [facility] REPOSITORY TYPE CODE TESTS RESULT OUT OF RANGE REFERENCE UNITS LAB L100.1000 4.4-11.0 K/mm3 Normal WBC 6.5 LAB L100.1200 4.2-5.4 M/mm3 Normal RBC 4.51 LAB L100.1300 12.0-15.0 g/dl Normal HGB 12.0 LAB L100.1400 37-47 % Normal HCT 37.2 LAB L100.1500 81-99 fL Normal MCV 82.5 LAB L100.1600 27.0-32.0 pg Low MCH 26.6 LAB L100.1700 32-36 g/gl Normal MCHC 32.3 LAB L100.1810 11.6-14.6 % Normal RDW CV 14.0 LAB L100.1820 35.1-43.9 fl Normal RDW SD 41.2 LAB L100.1900 150-450 K/mm3 High PLT 474 LAB L100.2000 6.2-12.0 fl Normal MPV 9.7 LAB L100.2100 47-70 % Normal NEUT% 49.0 LAB L100.2200 19-41 % Normal LY% 38.4 LAB L100.2300 0-10 % Normal MONO% 8.5 LAB L100.2400 0-5 % Normal EO% 3.3 LAB L100.2500 0-1 % Normal BASO% 0.5 LAB L100.2550 0.0-0.9 % Normal IM GRAN % 0.300 Result Comment: IG% - Immature Granulocytes (promyelocytes, myelocytes and metamyelocytes) > 1% indicates that a LEFT SHIFT is Present. LAB L100.2620 2.0-7.7 X10 3/uL Normal Absolute Neut 3.2 LAB L100.2720 0.83-4.51 X10 3/ul Normal Absolute Lymph 2.48 Performed By: #### L100.0100 #### [facility] [address] [place], [place], [id number] COMPREHENSIVE METABOLIC Collected: 12/31/2017 Status: F Source: [place] 9:33 AM [facility] REPOSITORY TYPE CODE TESTS RESULT OUT OF RANGE REFERENCE UNITS LAB L501.0100 74-106 mg/dL Normal GLU 89 Result Comment: Please note revised GLUCOSE reference range effective 2017. LAB L501.1000 7-18 mg/dL Normal BUN 16 LAB L501.1100 0.55-1.02 mg/dL Normal CREAT,SERUM 0.77 Result Comment: The validity of the calculated GFR AND GFRAA in patients over 70 years has not been determined. Clinical correlation is essential. LAB L501.1110 >60 mL/min Normal EST GFR 80 Result Comment: Non- GFR Calc LAB L501.1115 >60 mL/min Normal EST GFR - AA 97 Result Comment: GFR Calc LAB L501.1300 10-20 RATIO High BUN/CRE 20.7 LAB L501.1500 6.4-8.2 g/dL T Normal PROT 7.8 LAB L501.1800 3.2-5.0 g/dL Normal ALB 3.3 LAB L501.1950 2.2-4.2 g/dL High GLOB 4.5 LAB L501.2000 0.9-2.4 RATIO Low A/G 0.7 LAB L501.2200 8.5-10.1 mg/dL CA Normal 9.4 LAB L501.4100 15-37 U/L Low AST 11 LAB L501.4305 45-117 U/L Normal ALK P 74 LAB L501.4405 13-56 U/L Normal ALT 18 LAB L501.4600 0.20-1.00 mg/dL T Normal BILI 0.30 LAB L501.5300 136-145 mmol/L NA Normal 141 LAB L501.5600 3.5-5.1 mmol/L K Normal 4.4 LAB L501.5900 98-107 mmol/L CL Normal 105 LAB L501.6100 21.0-32.0 mmol/L Normal CO2 27.0 LAB L501.6200 5-15 Normal GAP 9 Performed By: #### L500.4050, L500.4100 #### [facility] [address] [place], [address] LIPID PROFILE Collected: 12/31/2017 Status: F Source: [place] 9:33 AM [facility] REPOSITORY TYPE CODE TESTS RESULT OUT OF RANGE REFERENCE UNITS LAB L501.4900 200 mg/dL Normal CHOL 178 Result Comment: <200 mg/dL Desirable 200-240 mg/dL Borderline >240 mg/dL High Risk LAB L501.5000 mg/dL Normal TRIG 137 Result Comment: The drugs N-Acetylcysteine and Metamizole may falsely depress this assay. Serum Triglycerides Reference Interval Normal <150 mg/dL Borderline high 150 - 199 mg/dL High 200 - 499 mg/dL Very High > or = 500 mg/dL LAB L501.6400 mg/dL Normal HDL 47 Result Comment: The drugs N-Acetylcysteine and Metamizole may falsely depress this assay. Reference Range HDL <40 mg/dL Low HDL Cholesterol HDL >or= 60 mg/dL High HDL Cholesterol LAB L501.6500 0-130 mg/dL Normal LDL 104 LAB L501.6600 5-40 mg/dL Normal VLDL 27 Performed By: #### L500.4050, L500.4100 #### [facility] [address] [place], [address] CNOV Observed: 12/22/2017 Status: COMPLETED Source: [place] 1:45 PM [facility] REPOSITORY Office Visit (OTOLST) SYLVIADEEPA I ([id number]) 1955 F Date Time Provider Department 12/22/17 1:45 PM CAM WORKMAN During your visit today, we recorded the following information about you: Cam Workman MD 12/22/2017 1:44 PM Signed History: Deepa Blue, a 62 year old female with known L ear perf, presents for f/up L perf. No drainage. L drainage 05/17. Resolved with tobradex. L ear drainage 09/17. Used tobradex for 1 wk. No more drainage. Did well from 01/14-09/17. Drainage 01/14 - used tobradex 1 wk. No more drainage. Drainage 07/14. CX 07/24/13: no growth. Completed tobradex 1 wk ago. Dry. CCHA applied 07/20/13 - still drained with pres when tried CCHA. H/o recurrent L ear drainage. Did well after CCHA applied 02/24/13, 04/20/13 until early 07/14 - moist. H/o drainage about 2 per wk - prior to 02/11. S/p R tympanoplasty - R hearing always worse than L. Denies dizziness, ear pressure, pain, nasal congestion, runny-nose, post-nasal drip. No history of noise exposure. No history of ear trauma. No history of allergies. PE: Alert; oriented; well-developed; no apparent distress. Normal voice; normal communication. Eyes: EOMI, pupils symmetric and reactive bilaterally. Ears: R: Mod wax - cleaned. TM thickened. Dry. L: Mod wax cleaned. Dry. Small perf ant-inf. No EAC and TM erythema. Impression: Small chronic perf L ear. Dry last 6 mos. F/up 2 mos. Did well with CCHA for while but persistent drainage after CCHA 07/14. 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 METOPROLOL SUCCINATE ER 50 MG* Take 1 tablet by mouth once d* AMLODIPINE 5 MG TABLET Take 1 tablet by mouth once d* MUPIROCIN 2 % TOPICAL CREAM Apply 1 application to affect* GVXFOOSGBTUT-YUVLPRQB-OFCIPN * Take 1 tablet by mouth once d* * B-COMPLEX WITH VITAMIN C TABL* Take one(1) tablet daily. * CHOLECALCIFEROL (VITAMIN D3) * 2 cap daily TOBRAMYCIN 0.3 %-DEXAMETHASON* 5 drops to left ear twice a d* METOPROLOL TARTRATE 25 MG TAB* Take 25 mg by mouth twice viktoria* HYDROCORTISONE 2.5 % TOPICAL * Apply 1 application to affect* * FISH OIL 500 MG CAPSULE 2 cap daily Problem List As Of Date 12/22/2017 Noted Resolved SEBACEOUS CYST [L72.3] INVALID FOR* RHEUMATIC HEART DISEASE UNSPECIFIED [I09.9] INVALID FOR* DIARRHEA NOS [R19.7] INVALID FOR* INT HEMORRHOID W/O COMPL [K64.8] INVALID FOR* HYPERTENSION NOS [I10] INVALID FOR* MITRAL VALVE DISORDER [I05.9] HYPERLIPIDEMIA NEC/NOS [E78.5] INT DERANGEMENT KNEE NEC [M23.8X9] INVALID FOR* Bursitis, Hip [M70.70] INVALID FOR* Elevated BP [JVC6641] INVALID FOR* Central perforation of tympanic membrane of lef*INVALID FOR* Encounter Status:Closed by CAM WORKMAN MD on 12/22/17 PROGRESS Observed: 12/22/2017 Status: COMPLETED Source: [place] 1:36 PM [facility] REPOSITORY HNO ID: [id number] Author: Cam Workman Service: (none) Author Type: Physician Type: Progress Notes Filed: 12/22/2017 1:44 PM Note Text: History: Deepa Blue, a 62 year old female with known L ear perf, presents for f/up L perf. No drainage. L drainage 05/17. Resolved with tobradex. L ear drainage 09/17. Used tobradex for 1 wk. No more drainage. Did well from 01/14-09/17. Drainage 01/14 - used tobradex 1 wk. No more drainage. Drainage 07/14. CX 07/24/13: no growth. Completed tobradex 1 wk ago. Dry. CCHA applied 07/20/13 - still drained with pres when tried CCHA. H/o recurrent L ear drainage. Did well after CCHA applied 02/24/13, 04/20/13 until early 07/14 - moist. H/o drainage about 2 per wk - prior to 02/11. S/p R tympanoplasty '71 - R hearing always worse than L. Denies dizziness, ear pressure, pain, nasal congestion, runny-nose, post-nasal drip. No history of noise exposure. No history of ear trauma. No history of allergies. PE: Alert; oriented; well-developed; no apparent distress. Normal voice; normal communication. Eyes: EOMI, pupils symmetric and reactive bilaterally. Ears: R: Mod wax - cleaned. TM thickened. Dry. L: Mod wax cleaned. Dry. Small perf ant-inf. No EAC and TM erythema. Impression: Small chronic perf L ear. Dry last 6 mos. F/up 2 mos. Did well with CCHA for while but persistent drainage after CCHA 07/14. BASIC METABOLIC Collected: 10/22/2017 Status: F Source: [place] PROFILE ([facility]) 9:25 AM [facility] REPOSITORY TYPE CODE TESTS RESULT OUT OF RANGE REFERENCE UNITS LAB L501.0100 74-106 mg/dL Normal GLU 105 Result Comment: Fasting Glucose result from 100 to 125 mg/dL suggests IMPAIRED HOMEOSTASIS per A.D.A. criteria. Please note revised GLUCOSE reference range effective 2017. LAB L501.1000 7-18 mg/dL Normal BUN 12 LAB L501.1100 0.55-1.02 mg/dL Normal CREAT,SERUM 0.71 Result Comment: The validity of the calculated GFR AND GFRAA in patients over 70 years has not been determined. Clinical correlation is essential. LAB L501.1110 >60 mL/min Normal EST GFR 88 Result Comment: Non- GFR Calc LAB L501.1115 >60 mL/min Normal EST GFR - AA 107 Result Comment: GFR Calc LAB L501.1300 10-20 RATIO Normal BUN/CRE 16.8 LAB L501.2200 8.5-10.1 mg/dL CA Normal 8.9 LAB L501.5300 136-145 mmol/L NA Normal 140 LAB L501.5600 3.5-5.1 mmol/L K Normal 3.8 LAB L501.5900 98-107 mmol/L CL Normal 107 LAB L501.6100 21.0-32.0 mmol/L Normal CO2 25.0 LAB L501.6200 5-15 Normal GAP 8 Performed By: #### L500.2500 #### [facility] [place], [address] PROGRESS Observed: 10/13/2017 Status: COMPLETED Source: [place] 1:46 PM [facility] REPOSITORY HNO ID: [id number] Author: Cam Workman Service: (none) Author Type: Physician Type: Progress Notes Filed: 10/13/2017 1:47 PM Note Text: History: Deepa Blue, a 62 year old female with known L ear perf, presents for f/up L perf. No drainage. L drainage 05/17. Resolved with tobradex. L ear drainage 09/17. Used tobradex for 1 wk. No more drainage. Did well from 01/14-09/17. Drainage 01/14 - used tobradex 1 wk. No more drainage. Drainage 07/14. CX 07/24/13: no growth. Completed tobradex 1 wk ago. Dry. CCHA applied 07/20/13 - still drained with pres when tried CCHA. H/o recurrent L ear drainage. Did well after CCHA applied 02/24/13, 04/20/13 until early 07/14 - moist. H/o drainage about 2 per wk - prior to 02/11. S/p R tympanoplasty '71 - R hearing always worse than L. Denies dizziness, ear pressure, pain, nasal congestion, runny-nose, post-nasal drip. No history of noise exposure. No history of ear trauma. No history of allergies. PE: Alert; oriented; well-developed; no apparent distress. Normal voice; normal communication. Eyes: EOMI, pupils symmetric and reactive bilaterally. Ears: R: Mod wax - cleaned. TM thickened. Dry. L: Mod wax cleaned. Dry. Small perf ant-inf. No EAC and TM erythema. Impression: Small chronic perf L ear. Dry last 6 mos. F/up 2 mos. Did well with CCHA for while but persistent drainage after CCHA 07/14. CNOV Observed: 10/13/2017 Status: COMPLETED Source: [place] 1:25 PM [facility] REPOSITORY Office Visit (OTOLST) DEEPA BLUE I ([id number]) 1955 F Date Time Provider Department 10/13/17 1:25 PM CAM WORKMAN [place] During your visit today, we recorded the following information about you: Cam Workman MD 10/13/2017 1:47 PM Signed History: Deepa Blue, a 62 year old female with known L ear perf, presents for f/up L perf. No drainage. L drainage 05/17. Resolved with tobradex. L ear drainage 09/17. Used tobradex for 1 wk. No more drainage. Did well from 01/14-09/17. Drainage 01/14 - used tobradex 1 wk. No more drainage. Drainage 07/14. CX 07/24/13: no growth. Completed tobradex 1 wk ago. Dry. CCHA applied 07/20/13 - still drained with pres when tried CCHA. H/o recurrent L ear drainage. Did well after CCHA applied 02/24/13, 04/20/13 until early 07/14 - moist. H/o drainage about 2 per wk - prior to 02/11. S/p R tympanoplasty ' - R hearing always worse than L. Denies dizziness, ear pressure, pain, nasal congestion, runny-nose, post-nasal drip. No history of noise exposure. No history of ear trauma. No history of allergies. PE: Alert; oriented; well-developed; no apparent distress. Normal voice; normal communication. Eyes: EOMI, pupils symmetric and reactive bilaterally. Ears: R: Mod wax - cleaned. TM thickened. Dry. L: Mod wax cleaned. Dry. Small perf ant-inf. No EAC and TM erythema. Impression: Small chronic perf L ear. Dry last 6 mos. F/up 2 mos. Did well with CCHA for while but persistent drainage after CCHA 07/14. 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 AMLODIPINE 5 MG TABLET Take 1 tablet by mouth once d* HYDROCORTISONE 2.5 % TOPICAL * Apply 1 application to affect* * B-COMPLEX WITH VITAMIN C TABL* Take one(1) tablet daily. TOBRAMYCIN 0.3 %-DEXAMETHASON* 5 drops to left ear twice a d* METOPROLOL TARTRATE 25 MG TAB* Take 25 mg by mouth twice viktoria* METOPROLOL SUCCINATE ER 50 MG* Take 1 tablet by mouth once d* MUPIROCIN 2 % TOPICAL CREAM Apply 1 application to affect* XCOAEAIJSJOE-YSAHJRIT-KAXHWM * Take 1 tablet by mouth once d* * CHOLECALCIFEROL (VITAMIN D3) * 2 cap daily * FISH OIL 500 MG CAPSULE 2 cap daily Problem List As Of Date 10/13/2017 Noted Resolved SEBACEOUS CYST [L72.3] INVALID FOR* RHEUMATIC HEART DISEASE UNSPECIFIED [I09.9] INVALID FOR* DIARRHEA NOS [R19.7] INVALID FOR* INT HEMORRHOID W/O COMPL [K64.8] INVALID FOR* HYPERTENSION NOS [I10] INVALID FOR* MITRAL VALVE DISORDER [I05.9] HYPERLIPIDEMIA NEC/NOS [E78.5] INT DERANGEMENT KNEE NEC [M23.8X9] INVALID FOR* Bursitis, Hip [M70.70] INVALID FOR* Elevated BP [RMS9936] INVALID FOR* Central perforation of tympanic membrane of lef*INVALID FOR* Encounter Status:Closed by CAM WORKMAN MD on 10/13/17 ALLERGIES ALLERGIES DATE TYPE / NAME / CODE REACTION SEVERITY SOURCE CODE 07/04/2018 Drug Penicillins/F0010 Diarrhea Unknown [place] Allergy/41 09737(RXNORM) Community [id number]([facility]) Repository 07/04/2018 Drug Muukuxe-Tvv-Lra Other Unknown [place] Allergy/41 Reductase [facility] [id number]( Inhibitor/[id number] [facility]) 095(RXNORM) Repository 04/04/2014 Environ/42 POISON TREMAINE RASH [facility] [id number](SN [facility] [place] [address] [facility]) Repository 05/01/2010 DRUG SIMVASTATIN INTOLERANCE [facility] INGREDI/41 [place] 8808619(SN Repository OMED CT) 06/23/2005 Drug PENICILLINS [facility] Class/4195 [place] [address](SNOM Repository ED CT) ENCOUNTERS ENCOUNTERS ADMIT/DISCHARGE ACCOUNT ADMITTING ENCOUNTER LOCATION SOURCE NUMBER CLASS 07/13/2018/07/14/20 [id number] Radha, Inpatient [place] [address] Cam Encounter [facility] ing:WI2Yupu: Repository [id number]: 1 07/04/2018 [id number] Ambulatory [facility] Repository 05/16/2018/05/16/20 [id number] Ambulatory [address] Repository 03/08/2018/03/08/20 [id number] Ambulatory [address] Repository 01/07/2018 [id number] Ambulatory [facility] ing:LAB.FUTUR Repository E 12/22/2017/12/23/19 [id number] Ambulatory [address] Repository 10/22/2017 [id number] Ambulatory [facility] ing:LAB.FUTUR Repository E 10/13/2017/10/14/19 [id number] Ambulatory [address] Repository PAYERS PAYERS ENCOUNTER GUARANTOR PAYER SUBSCRIBER SOURCE 07/13/2018 DEEPA I Primary DEEPA [id number] Insurance:MEDICAL SWALLENDOB: [facility] [id number] Number: Repository [id number]: [phone]) [id number] [phone] () Date:[id number] [address], [place] [address]LF: 07/13/2018 [facility] Number: Effective Repository Date:2018-06-14 07/04/2018 DEEPA BLUE Primary DEEPA [id number] [facility] Insurance:MEDICAL IDOB: [id number] [address]Gpd: (330) Number: Repository [phone] () [id number] Date:2080-42-35QM [address] [place] [address]YO: 07/04/2018 Secondary NOT GIVENUNK [place] Insurance:SELF PAY [facility] Number: Effective Repository Date:2018-07-04 01/07/2018 DEEPA BLUE Primary DEEPA [address] [facility] Insurance:MEDICAL IDOB: [facility] [id number] [address]Tca: [phone]) Number: Repository [phone] () [id number] Date:[id number] [address]LF: 01/07/2018 Secondary NOT GIVENUNK [place] Insurance:SELF PAY [facility] Number: Effective Repository Date:2017-10-22 10/22/2017 DEEPA BLUE Primary DEEPA SYLVIA [place] [address] [facility] Insurance:MEDICAL IDOB: [facility] [id number] [address]Uys: (330) Number: Repository [phone] () [id number] Date:5210-49-41OK [address] [address]BO: 10/22/2017 Secondary NOT GIVENUNK Vandana Insurance:SELF PAY [facility] Number: Effective Repository Date:2017-07-09
== END 2018-07-14 14:27 | disposition home or self-care (01) | DRG 470 ==
PROVIDERS: Admitting Provider Specialist; Family Provider Family Medicine; PCP Family Medicine; Referring Provider Specialist; Visit Provider Specialist
PROC: 0SRB04A Replacement of Left Hip Joint with Ceramic on Polyethylene Synthetic Substitute, Uncemented, Open Approach (ICD-10-PCS; CPT 27284; principal; 2018-07-13 09:50)
DX: M16.12 Unilateral primary osteoarthritis, left hip (principal); Z23 Encounter for immunization; I10 Essential (primary) hypertension; Z86.79 Personal history of other diseases of the circulatory system
CPT/HCPCS: 36415; 73501; 73502; 76000; 80048; 85025; 85027; 87081; 88305; 88311; 93005; 97110; 97161; 97165; 97530; 99251; C1776; J7120; 90686; G0463

== ENCOUNTER → 2018-10-12 08:19 | Outpatient (CLI) | payer OTHER, SELFPAY ==
[2018-07-13 13:30] VITALS: BMI 23.9
--- NOTE | 2018-10-12 08:22 | BI_ITS ---
MAMMOGRAPHY - BILATERAL SCREENING REASON FOR EXAM: Female, 63 years old. Routine annual screening examination. PERTINENT HISTORY: Mother with breast cancer. TECHNIQUE: Digital bilateral breast jg (3D mammographic acquisition) in the CC and MLO projections. 2-D mediolateral oblique (MLO) and craniocaudad (CC) views of both breasts were obtained. CAD: Full Field Digital Mammography with Computer Added Detection was performed. COMPARISON: Comparison is made with prior study dated February 17, 2018 and July 24, 2016. FINDINGS: Breast Composition: The breasts are heterogeneously dense, which may obscure small masses. There are no dominant masses or suspicious calcifications. Stable small bilateral axillary lymph nodes. No other significant abnormalities are identified. There has been no significant change since the prior study. BI/SCREENING MAMM (CAD), BILAT IMPRESSION: Stable bilateral screening mammogram. Yearly follow-up mammogram recommended. (A) ASSESSMENT CATEGORY: BIRADS Category 2: Benign. A letter regarding these results will be sent to the patient by the facility within 30 days. Approximately 10% of breast cancers are not detected by mammography. A normal mammogram should not delay biopsy of a clinically suspicious abnormality. [id number] Electronically Signed: Jasper Gibson, at 10:41 EDT , Service support ,
== END ==
PROVIDERS: Family Provider Family Medicine; PCP Family Medicine; Referring Provider Family Medicine; Visit Provider Family Medicine
DX: Z12.31 Encounter for screening mammogram for malignant neoplasm of breast (principal)
CPT/HCPCS: 77063; 77067

== ENCOUNTER → 2019-08-17 14:03 | Outpatient (CLI) | payer OTHER, SELFPAY ==
[2018-07-13 13:30] VITALS: BMI 23.9
--- NOTE | 2019-08-17 14:07 | RAD_ITS ---
STUDY: X-RAY - RIGHT SHOULDER REASON FOR EXAM: Female, 64 years old. CHRONIC PAIN, GETTING WORSE TECHNIQUE: 4 view(s) of the shoulder. COMPARISON: None. FINDINGS: Normal glenohumeral articulation. Normal acromioclavicular joint. Normal acromion. Normal humeral head and visualized proximal humerus. The soft tissue structures are unremarkable. There is no demonstrated fracture. Normal visualized pulmonary apex. RAD/Shoulder min 2 Views IMPRESSION: Normal x-ray examination of the shoulder. Electronically Signed: Hodan Alexis MD at 23:01 EST , Service support ,
== END ==
PROVIDERS: PCP Family Medicine; Referring Provider Family Medicine; Visit Provider Family Medicine
DX: M25.511 Pain in right shoulder (principal)
CPT/HCPCS: 73030

== ENCOUNTER → 2019-10-17 08:21 | Outpatient (CLI) | payer OTHER, SELFPAY ==
[2018-07-13 13:30] VITALS: BMI 23.9
--- NOTE | 2019-10-17 08:24 | BI_ITS ---
MAMMOGRAPHY - BILATERAL SCREENING REASON FOR EXAM: Female, 64 years old. Routine annual screening examination. PERTINENT HISTORY: Mother with breast cancer. TECHNIQUE: Digital bilateral breast maddison (3D mammographic acquisition) in the CC and MLO projections. 2-D mediolateral oblique (MLO) and craniocaudad (CC) views of both breasts were obtained. CAD: Full Field Digital Mammography with Computer Added Detection was performed. COMPARISON: Comparison is made with prior examination of October 12, 2018 and August 20, 2017. FINDINGS: Breast Composition: The breasts are heterogeneously dense, which may obscure small masses. There are no dominant masses or suspicious calcifications. No other significant abnormalities are identified. There has been no significant change since the prior study. BI/SCREEN MAMM (CAD) W/MADDISON BILAT IMPRESSION: Stable bilateral screening mammogram. Yearly follow-up mammogram recommended. (A) ASSESSMENT CATEGORY: BIRADS Category 1: Negative. A letter regarding these results will be sent to the patient by the facility within 30 days. Approximately 10% of breast cancers are not detected by mammography. A normal mammogram should not delay biopsy of a clinically suspicious abnormality. [id number] Electronically Signed: Jasper Gibson, at 9:49 EDT , Service support ,
== END ==
PROVIDERS: PCP Family Medicine; Referring Provider Family Medicine; Visit Provider Family Medicine
DX: Z12.31 Encounter for screening mammogram for malignant neoplasm of breast (principal)
CPT/HCPCS: 77063; 77067

== ENCOUNTER → 2020-08-21 09:26 | Outpatient (CLI) | payer OTHER, SELFPAY ==
[2018-07-13 13:30] VITALS: BMI 23.9
[2020-08-21 12:32] LABS: Anion Gap 6 (5-15); BUN 17 mg/dL (7-18); BUN/Creat Ratio 17.4 RATIO (10-20); Calcium,Total 8.8 mg/dL (8.5-10.1); Chloride 105 mmol/L (98-107); Cholesterol 183 mg/dL (200); Creatinine, Serum 0.98 mg/dL (0.55-1.02); EST Glomerular Filtration Rate 61 mL/min (>60); Est Glom Filt Rate - Afr Amer 74 mL/min (>60); Glucose 83 mg/dL (74-106); High Density Lipoprotein 55 mg/dL; Sodium Level 137 mmol/L (136-145); Triglycerides 91 mg/dL; Very Low Density Lipoprotein 18 mg/dL (5-40)
== END ==
PROVIDERS: PCP Family Medicine; Visit Provider Family Medicine
DX: Z00.00 Encounter for general adult medical examination without abnormal findings (principal)
CPT/HCPCS: 36415; 80048; 80061

== ENCOUNTER → 2020-10-23 07:49 | Outpatient (CLI) | payer OTHER, SELFPAY ==
[2018-07-13 13:30] VITALS: BMI 23.9
--- NOTE | 2020-10-23 07:52 | BI_ITS ---
MAMMOGRAPHY - BILATERAL SCREENING REASON FOR EXAM: Female, 65 years old. Routine annual screening examination. PERTINENT HISTORY: Mother with breast cancer. TECHNIQUE: Digital bilateral breast maddison (3D mammographic acquisition) in the CC and MLO projections. 2-D mediolateral oblique (MLO) and craniocaudad (CC) views of both breasts were obtained. CAD: Full Field Digital Mammography with Computer Added Detection was performed. COMPARISON: Comparison is made with prior study dated 10/17/2019 and 10/12/2018. FINDINGS: Breast Composition: The breasts are heterogeneously dense, which may obscure small masses. There are no dominant masses or suspicious calcifications. Stable benign-appearing bilateral axillary lymph nodes. No other significant abnormalities are identified. There has been no significant change since the prior study. BI/SCRN MAMM (CAD)W/MADDISON BILAT IMPRESSION: Stable bilateral screening mammogram. Yearly follow-up mammogram recommended. (A) ASSESSMENT CATEGORY: BIRADS Category 2: Benign. A letter regarding these results will be sent to the patient by the facility within 30 days. Approximately 10% of breast cancers are not detected by mammography. A normal mammogram should not delay biopsy of a clinically suspicious abnormality. [id number] Electronically Signed: Jasper Gibson MD at 8:38 EDT , Service support ,
== END ==
PROVIDERS: PCP Family Medicine; Referring Provider Family Medicine; Visit Provider Family Medicine
DX: Z12.31 Encounter for screening mammogram for malignant neoplasm of breast (principal)
CPT/HCPCS: 77063; 77067

== ENCOUNTER → 2020-11-15 10:53 | Outpatient (CLI) | payer OTHER, SELFPAY ==
[2018-07-13 13:30] VITALS: BMI 23.9
[2020-11-15 11:19] LABS: Erythrocyte Sedimentation Rate 94 mm/hr (0-30)
[2020-11-15 11:43] LABS: Rheumatoid Factor < 10.0 IU/mL (<15)
== END ==
PROVIDERS: PCP Family Medicine; Referring Provider Chiropractor; Visit Provider Chiropractor
DX: M06.9 Rheumatoid arthritis, unspecified (principal)
CPT/HCPCS: 36415; 85652; 86431

== ENCOUNTER → 2020-11-20 12:15 | Outpatient (CLI) | payer OTHER, SELFPAY ==
[2018-07-13 13:30] VITALS: BMI 23.9
[2020-11-20 13:23] LABS: Absolute Lymphocyte Count 2.83 X10^3/uL (0.83-4.51); Absolute Neutrophil Count 3.7 X10^3/uL (2.0-7.7); Basophil# 0.04 X10^3/uL; Basophil% 0.5 % (0-1); Eosinophil# 0.23 X10^3/uL; Eosinophils% 3.1 % (0-5); Hematocrit 35.9 % (37-47); Hemoglobin 11.1 g/dL (12.0-15.0); Lymphocyte # 2.83 X10^3/ul (0.83-4.51); Lymphocyte % 37.9 % (19-41); Mean Corp Hgb Conc 30.9 g/dL (32-36); Mean Corpuscular Hgb 25.8 pg (27.0-32.0); Mean Corpuscular Volume 83.3 fL (81-99); Mean Platelet Vol. 8.9 fl (6.2-12.0); Monocyte# 0.62 X10^3/uL; Monocyte% 8.3 % (0-10); NRBC Flagged by Analyzer 0 % (0-5); Neutrophil # 3.69 X10^3/uL (2.7-7.7); Neutrophil % 49.5 % (47-70); Platelet Count 527 K/mm3 (150-450); RBC Distribution Width CV 14.6 % (11.6-14.6); RBC Distribution Width SD 44.6 fl (35.1-43.9); Red Blood Count 4.31 M/mm3 (4.2-5.4); White Blood Count 7.5 K/mm3 (4.4-11.0)
[2020-11-20 13:26] LABS: Erythrocyte Sedimentation Rate 32 mm/hr (0-30)
[2020-11-20 13:49] LABS: ALB/GLOB Ratio 0.7 RATIO (0.9-2.4); AST(SGOT) 9 U/L (15-37); Alanine Aminotransfer ALT/SGPT 15 U/L (13-56); Albumin, Serum 3.3 g/dL (3.2-5.0); Alkaline Phosphatase 85 U/L (45-117); Anion Gap 4 (5-15); BUN 15 mg/dL (7-18); BUN/Creat Ratio 18.6 RATIO (10-20); Calcium,Total 9.3 mg/dL (8.5-10.1); Chloride 103 mmol/L (98-107); EST Glomerular Filtration Rate 76 mL/min (>60); Est Glom Filt Rate - Afr Amer 92 mL/min (>60); Globulin 4.9 g/dL (2.2-4.2); Glucose 97 mg/dL (74-106); Protein, Total 8.2 g/dL (6.4-8.2); Sodium Level 137 mmol/L (136-145)
[2020-11-21 18:39] LABS: ANTINUCLEAR ANTIBODIES DIRECT Negative (Negative)
[2020-11-22 09:16] LABS: CCP IgG Antibodies 5 units (0-19)
== END ==
PROVIDERS: PCP Family Medicine; Referring Provider Family Medicine; Visit Provider Family Medicine
DX: M25.50 Pain in unspecified joint (principal); M79.10 Myalgia, unspecified site; I10 Essential (primary) hypertension; R70.0 Elevated erythrocyte sedimentation rate
CPT/HCPCS: 36415; 80053; 85025; 85652; 86038; 86140; 86200; 86225; 86235

== ENCOUNTER → 2021-03-26 10:32 | Outpatient (CLI) | payer MEDICARE, SELFPAY ==
[2021-03-26 12:26] LABS: Erythrocyte Sedimentation Rate 22 mm/hr (0-30)
== END ==
PROVIDERS: PCP Internal Medicine; Referring Provider Internal Medicine; Visit Provider Internal Medicine
DX: M35.3 Polymyalgia rheumatica (principal)
CPT/HCPCS: 36415; 85652; 86140

== ENCOUNTER → 2021-06-18 07:54 | Outpatient (CLI) | payer MEDICARE, SELFPAY ==
[2021-06-18 08:42] LABS: Absolute Lymphocyte Count 3.53 X10^3/uL (0.83-4.51); Absolute Neutrophil Count 3.3 X10^3/uL (2.0-7.7); Basophil# 0.04 X10^3/uL; Basophil% 0.5 % (0-1); Eosinophil# 0.18 X10^3/uL; Eosinophils% 2.3 % (0-5); Hematocrit 34.3 % (37-47); Hemoglobin 10.9 g/dL (12.0-15.0); Lymphocyte # 3.53 X10^3/ul (0.83-4.51); Lymphocyte % 45.1 % (19-41); Mean Corp Hgb Conc 31.8 g/dL (32-36); Mean Corpuscular Hgb 26.7 pg (27.0-32.0); Mean Corpuscular Volume 84.1 fL (81-99); Mean Platelet Vol. 9.1 fl (6.2-12.0); Monocyte# 0.77 X10^3/uL; Monocyte% 9.8 % (0-10); NRBC Flagged by Analyzer 0 % (0-5); Neutrophil # 3.26 X10^3/uL (2.7-7.7); Neutrophil % 41.7 % (47-70); Platelet Count 466 K/mm3 (150-450); RBC Distribution Width CV 13.2 % (11.6-14.6); RBC Distribution Width SD 40.2 fl (35.1-43.9); Red Blood Count 4.08 M/mm3 (4.2-5.4); White Blood Count 7.8 K/mm3 (4.4-11.0)
[2021-06-18 08:53] LABS: Erythrocyte Sedimentation Rate 65 mm/hr (0-30)
[2021-06-18 09:25] LABS: ALB/GLOB Ratio 0.7 RATIO (0.9-2.4); AST(SGOT) 11 U/L (15-37); Alanine Aminotransfer ALT/SGPT 22 U/L (13-56); Albumin, Serum 3.1 g/dL (3.2-5.0); Alkaline Phosphatase 62 U/L (45-117); Anion Gap 7 (5-15); BUN 17 mg/dL (7-18); BUN/Creat Ratio 19.4 RATIO (10-20); Calcium,Total 9.1 mg/dL (8.5-10.1); Chloride 105 mmol/L (98-107); Creatinine, Serum 0.88 mg/dL (0.55-1.02); EST Glomerular Filtration Rate 69 mL/min (>60); Est Glom Filt Rate - Afr Amer 83 mL/min (>60); Free T3 2.6 pg/mL (2.18-3.98); Globulin 4.7 g/dL (2.2-4.2); Glucose 109 mg/dL (74-106); Potassium 3.8 mmol/L (3.5-5.1); Protein, Total 7.8 g/dL (6.4-8.2); Sodium Level 138 mmol/L (136-145); T4 Free Direct 1.07 ng/dL (0.76-1.46); Thyroid Stim Hormone (TSH) 2.62 uIU/mL (0.358-3.74)
[2021-06-18 10:48] LABS: Vitamin D,25 Hydroxy > 150.0 ng/mL (29.95-100.01)
== END ==
PROVIDERS: PCP Internal Medicine; Referring Provider Internal Medicine; Visit Provider Internal Medicine
DX: I10 Essential (primary) hypertension (principal); M35.3 Polymyalgia rheumatica; E55.9 Vitamin D deficiency, unspecified
CPT/HCPCS: 36415; 80053; 82306; 84439; 84443; 84481; 85025; 85652; 86140

== ENCOUNTER → 2022-05-04 | Outpatient (CLI) | payer MEDICARE, SELFPAY ==
[2022-05-04 08:43] LABS: ALB/GLOB Ratio 0.7 RATIO (0.9-2.4); AST(SGOT) 7 U/L (15-37); Alanine Aminotransfer ALT/SGPT 11 U/L (13-56); Alkaline Phosphatase 73 U/L (45-117); Anion Gap 7 (5-15); BUN 17 mg/dL (7-18); BUN/Creat Ratio 21.1 RATIO (10-20); Calcium,Total 9.2 mg/dL (8.5-10.1); Chloride 106 mmol/L (98-107); Cholesterol 196 mg/dL (200); EST Glomerular Filtration Rate 76 mL/min (>60); Est Glom Filt Rate - Afr Amer 92 mL/min (>60); Globulin 4.6 g/dL (2.2-4.2); Glucose 112 mg/dL (74-106); High Density Lipoprotein 62 mg/dL; Potassium 3.9 mmol/L (3.5-5.1); Protein, Total 7.6 g/dL (6.4-8.2); Sodium Level 141 mmol/L (136-145); Thyroid Stim Hormone (TSH) 3.28 uIU/mL (0.358-3.74); Triglycerides 101 mg/dL; Very Low Density Lipoprotein 20 mg/dL (5-40)
[2022-05-04 08:48] LABS: Vitamin D,25 Hydroxy 97.6 ng/mL
[2022-05-04 09:16] LABS: Absolute Lymphocyte Count 2.82 X10^3/uL (0.83-4.51); Absolute Neutrophil Count 3.2 X10^3/uL (2.0-7.7); Basophil# 0.04 X10^3/uL; Basophil% 0.6 % (0-1); Eosinophil# 0.23 X10^3/uL; Eosinophils% 3.3 % (0-5); Hematocrit 36.1 % (37-47); Hemoglobin 11.5 g/dL (12.0-15.0); Lymphocyte # 2.82 X10^3/ul (0.83-4.51); Lymphocyte % 40.8 % (19-41); Mean Corp Hgb Conc 31.9 g/dL (32-36); Mean Corpuscular Hgb 25.5 pg (27.0-32.0); Mean Platelet Vol. 9.4 fl (6.2-12.0); Monocyte# 0.61 X10^3/uL; Monocyte% 8.8 % (0-10); NRBC Flagged by Analyzer 0 % (0-5); Neutrophil # 3.18 X10^3/uL (2.7-7.7); Neutrophil % 46.1 % (47-70); Platelet Count 435 K/mm3 (150-450); RBC Distribution Width CV 15.6 % (11.6-14.6); RBC Distribution Width SD 45.1 fl (35.1-43.9); Red Blood Count 4.51 M/mm3 (4.2-5.4); White Blood Count 6.9 K/mm3 (4.4-11.0)
[2022-05-04 23:32] LABS: Erythrocyte Sedimentation Rate 66 mm/hr (0-30)
[2022-05-06 10:27] LABS: Ferritin 169 ng/mL (8-252); Iron 27 ug/dL (50-170); Iron Binding Capacity,Total 291 ug/dL (250-450); PERCENT IRON SATURATION 9.3 % (15.0-55.0)
== END | disposition home or self-care (01) ==
LOC: LAB 07:49
PROVIDERS: PCP Internal Medicine; Referring Provider Internal Medicine; Visit Provider Internal Medicine
DX: I10 Essential (primary) hypertension (principal); M35.3 Polymyalgia rheumatica; T88.1XXA Other complications following immunization, not elsewhere classified, initial encounter; D64.9 Anemia, unspecified; R71.8 Other abnormality of red blood cells; E55.9 Vitamin D deficiency, unspecified
CPT/HCPCS: 36415; 80053; 80061; 82306; 82728; 83540; 83550; 84443; 85025; 85652; 86140

== ENCOUNTER → 2022-06-12 | Outpatient (CLI) | payer MEDICARE, SELFPAY ==
--- NOTE | 2022-06-12 14:54 | BI_ITS ---
MAMMOGRAPHY - BILATERAL SCREENING REASON FOR EXAM: Female, 67 years old. Routine annual screening examination. PERTINENT HISTORY: Mother with breast cancer. TECHNIQUE: Digital bilateral breast maddison (3D mammographic acquisition) in the CC and MLO projections. 2-D mediolateral oblique (MLO) and craniocaudad (CC) views of both breasts were obtained. CAD: Full Field Digital Mammography with Computer Added Detection was performed. COMPARISON: Comparison is made with prior study dated 10/23/2020 and 10/17/2019. FINDINGS: Breast Composition: The breasts are heterogeneously dense, which may obscure small masses. There are no dominant masses or suspicious calcifications. No other significant abnormalities are identified. There has been no significant change since the prior study. BI/SCRN MAMM (CAD)W/MADDISON BILAT IMPRESSION: Stable bilateral screening mammogram. Yearly follow-up mammogram recommended. (A) ASSESSMENT CATEGORY: BIRADS Category 1: Negative. A letter regarding these results will be sent to the patient by the facility within 30 days. Approximately 10% of breast cancers are not detected by mammography. A normal mammogram should not delay biopsy of a clinically suspicious abnormality. [id number] Electronically Signed: Jasper Gibson MD at 8:52 EST ,
== END | disposition home or self-care (01) ==
LOC: OPBI 14:53
PROVIDERS: PCP Internal Medicine; Referring Provider Internal Medicine; Visit Provider Internal Medicine
DX: Z12.31 Encounter for screening mammogram for malignant neoplasm of breast (principal); Z80.3 Family history of malignant neoplasm of breast
CPT/HCPCS: 77063; 77067

== ENCOUNTER → 2023-06-21 | Outpatient (CLI) | payer MEDICARE, SELFPAY ==
--- NOTE | 2023-06-21 11:42 | BI_ITS ---
MAMMOGRAPHY - BILATERAL SCREENING REASON FOR EXAM: Female, 68 years old. Routine annual screening examination. PERTINENT HISTORY: Mother with breast cancer. History of prior left breast aspiration. TECHNIQUE: Digital bilateral breast maddison (3D mammographic acquisition) in the CC and MLO projections. 2-D mediolateral oblique (MLO) and craniocaudad (CC) views of both breasts were obtained. CAD: Full Field Digital Mammography with Computer Added Detection was performed. COMPARISON: Comparison is made with prior study dated June 12, 2022 and October 23, 2020. FINDINGS: Breast Composition: The breasts are heterogeneously dense, which may obscure small masses. There are no dominant masses or suspicious calcifications. Stable left axillary lymph nodes. No other significant abnormalities are identified. There has been no significant change since the prior study. BI/SCRN MAMM (CAD)W/MADDISON BILAT IMPRESSION: Stable bilateral screening mammogram. Yearly follow-up mammogram recommended. (A) ASSESSMENT CATEGORY: BIRADS Category 2: Benign. A letter regarding these results will be sent to the patient by the facility within 30 days. Approximately 10% of breast cancers are not detected by mammography. A normal mammogram should not delay biopsy of a clinically suspicious abnormality. [id number] Electronically Signed: Jasper Gibson MD at 9:31 EST ,
== END | disposition home or self-care (01) ==
LOC: OPBI 11:42
PROVIDERS: PCP Internal Medicine; Referring Provider Internal Medicine; Visit Provider Internal Medicine
DX: Z12.31 Encounter for screening mammogram for malignant neoplasm of breast (principal)
CPT/HCPCS: 77063; 77067

== ENCOUNTER → 2023-08-12 | Outpatient (CLI) | payer MEDICARE, SELFPAY ==
[2023-08-12 11:39] LABS: Absolute Lymphocyte Count 2.25 X10^3/uL (0.83-4.51); Absolute Neutrophil Count 4.8 X10^3/uL (2.0-7.7); Basophil# 0.03 X10^3/uL; Basophil% 0.4 % (0-1); Eosinophil# 0.17 X10^3/uL; Eosinophils% 2.1 % (0-5); Hematocrit 36.6 % (37-47); Hemoglobin 11.4 g/dL (12.0-15.0); Lymphocyte # 2.25 X10^3/ul (0.83-4.51); Lymphocyte % 27.6 % (19-41); Mean Corp Hgb Conc 31.1 g/dL (32-36); Mean Corpuscular Hgb 25.7 pg (27.0-32.0); Mean Corpuscular Volume 82.6 fL (81-99); Mean Platelet Vol. 9.2 fl (6.2-12.0); Monocyte# 0.83 X10^3/uL; Monocyte% 10.2 % (0-10); NRBC Flagged by Analyzer 0 % (0-5); Neutrophil # 4.82 X10^3/uL (2.7-7.7); Neutrophil % 59.2 % (47-70); Platelet Count 393 K/mm3 (150-450); RBC Distribution Width CV 14.4 % (11.6-14.6); RBC Distribution Width SD 43.7 fl (35.1-43.9); Red Blood Count 4.43 M/mm3 (4.2-5.4); White Blood Count 8.1 K/mm3 (4.4-11.0)
[2023-08-12 11:55] LABS: Vitamin D,25 Hydroxy 52.7 ng/mL
[2023-08-12 12:03] LABS: ALB/GLOB Ratio 0.7 RATIO (0.9-2.4); AST(SGOT) 8 U/L (15-37); Alanine Aminotransfer ALT/SGPT 16 U/L (13-56); Alkaline Phosphatase 74 U/L (45-117); Anion Gap 7 (5-15); BUN 18 mg/dL (7-18); BUN/Creat Ratio 21.5 RATIO (10-20); Calcium,Total 9.5 mg/dL (8.5-10.1); Chloride 106 mmol/L (98-107); Cholesterol 192 mg/dL (200); Creatinine, Serum 0.84 mg/dL (0.55-1.02); EST Glomerular Filtration Rate 72 mL/min (>60); Est Glom Filt Rate - Afr Amer 87 mL/min (>60); Globulin 4.6 g/dL (2.2-4.2); Glucose 115 mg/dL (74-106); High Density Lipoprotein 55 mg/dL; Magnesium 1.9 mg/dL (1.6-2.6); Potassium 4.1 mmol/L (3.5-5.1); Protein, Total 7.6 g/dL (6.4-8.2); Sodium Level 138 mmol/L (136-145); Triglycerides 147 mg/dL; Very Low Density Lipoprotein 29 mg/dL (5-40)
--- OUTSIDE RECORDS SUMMARY | 2023-08-12 12:44 | XMS RPT_ITS | CCD ---
Author Name Unknown Address [address] [place] [address] Organization [facility] Results Test Name Value Interpretation Reference Range Facil ity Summary Purpose Family History No Family History Records Found Advance Directives No Advanced Directives Records Found Additional Source Comments INFORMATION SOURCE (unrecogn ized section and content) FOR RECORDS PERTAINING TO PATIENTS WHO ARE OR HAVE BEEN ENROLLED IN A CHEMICAL DEPENDENCY/SUBSTANCEABUSE PROGRAM, SOME INFORMATION MAY BE OMITTED. This clinical summary was aggregated from multiple sources. Caution should be exercised in using it in the provision of clinical care. This summary normalizes information from multiple sources, and as a consequence, information in this document may materially change the coding, format and clinical context of patient data. In addition, data may be omitted in some cases. CLINICAL DECISIONS SHOULD BE BASED ON THE PRIMARY CLINICAL RECORDS. [employer] provides no warranty or guarantee of the accuracy or completeness of information in this document.
== END | disposition home or self-care (01) ==
LOC: LAB 11:03
PROVIDERS: PCP Internal Medicine; Referring Provider Internal Medicine; Visit Provider Internal Medicine
DX: I10 Essential (primary) hypertension (principal); T88.1XXA Other complications following immunization, not elsewhere classified, initial encounter; E55.9 Vitamin D deficiency, unspecified; Z13.220 Encounter for screening for lipoid disorders
CPT/HCPCS: 36415; 80053; 80061; 82306; 83735; 84443; 85025

== ENCOUNTER → 2024-08-22 | Outpatient (CLI) | payer MEDICARE, SELFPAY ==
--- NOTE | 2024-08-22 07:29 | BI_ITS ---
MAMMOGRAPHY - BILATERAL SCREENING REASON FOR EXAM: Female, 69 years old. Routine annual screening examination. PERTINENT HISTORY: Mother with breast cancer. TECHNIQUE: Digital bilateral breast maddison (3D mammographic acquisition) in the CC and MLO projections. 2-D mediolateral oblique (MLO) and craniocaudad (CC) views of both breasts were obtained. CAD: Full Field Digital Mammography with Computer Added Detection was performed. COMPARISON: Comparison is made with prior study July 21, 2023 and June 12, 2022. FINDINGS: Breast Composition: The breasts are heterogeneously dense, which may obscure small masses. There are no dominant masses or suspicious calcifications. No other significant abnormalities are identified. There has been no significant change since the prior study. BI/SCRN MAMM (CAD)W/MADDISON BILAT IMPRESSION: Stable bilateral screening mammogram. Yearly follow-up mammogram recommended. (A) ASSESSMENT CATEGORY: BIRADS Category 1: Negative. A letter regarding these results will be sent to the patient by the facility within 30 days. Approximately 10% of breast cancers are not detected by mammography. A normal mammogram should not delay biopsy of a clinically suspicious abnormality. [id number] Electronically Signed: Jasper Gibson MD at 9:46 EST ,
[2024-08-22 08:26] LABS: Absolute Lymphocyte Count 2.56 X10^3/uL (0.83-4.51); Absolute Neutrophil Count 3.6 X10^3/uL (2.0-7.7); Basophil# 0.05 X10^3/uL; Basophil% 0.7 % (0-1); Eosinophil# 0.28 X10^3/uL; Eosinophils% 3.9 % (0-5); Hematocrit 37.2 % (37-47); Hemoglobin 11.9 g/dL (12.0-15.0); Lymphocyte # 2.56 X10^3/ul (0.83-4.51); Lymphocyte % 35.9 % (19-41); Mean Corpuscular Hgb 25.9 pg (27.0-32.0); Mean Corpuscular Volume 80.9 fL (81-99); Mean Platelet Vol. 8.6 fl (6.2-12.0); Monocyte# 0.64 X10^3/uL; NRBC Flagged by Analyzer 0 % (0-5); Neutrophil # 3.58 X10^3/uL (2.7-7.7); Neutrophil % 50.1 % (47-70); Platelet Count 335 K/mm3 (150-450); RBC Distribution Width CV 16.5 % (11.6-14.6); RBC Distribution Width SD 48.3 fl (35.1-43.9); White Blood Count 7.1 K/mm3 (4.4-11.0)
[2024-08-22 08:59] LABS: ALB/GLOB Ratio 0.7 RATIO (0.9-2.4); AST(SGOT) 9 U/L (15-37); Alanine Aminotransfer ALT/SGPT 12 U/L (13-56); Albumin, Serum 3.2 g/dL (3.2-5.0); Alkaline Phosphatase 72 U/L (45-117); Anion Gap 8 (5-15); BUN 17 mg/dL (7-18); BUN/Creat Ratio 21.4 RATIO (10-20); Calcium,Total 9.4 mg/dL (8.5-10.1); Chloride 107 mmol/L (98-107); Cholesterol 206 mg/dL (200); Creatinine, Serum 0.79 mg/dL (0.55-1.02); EST Glomerular Filtration Rate 76 mL/min (>60); Est Glom Filt Rate - Afr Amer 92 mL/min (>60); Globulin 4.6 g/dL (2.2-4.2); Glucose 102 mg/dL (74-106); High Density Lipoprotein 60 mg/dL; Magnesium 1.8 mg/dL (1.6-2.6); Potassium 4.1 mmol/L (3.5-5.1); Protein, Total 7.8 g/dL (6.4-8.2); Sodium Level 139 mmol/L (136-145); Triglycerides 172 mg/dL; Very Low Density Lipoprotein 34 mg/dL (5-40)
[2024-08-22 09:33] LABS: Vitamin D,25 Hydroxy 40.3 ng/mL
[2024-08-23 09:09] LABS: Ferritin 140 ng/mL (8-252); Free T3 3.1 pg/mL (2.18-3.98); Iron 56 ug/dL (50-170); Iron Binding Capacity,Total 283 ug/dL (250-450); PERCENT IRON SATURATION 19.8 % (15.0-55.0); T4 Free Direct 0.91 ng/dL (0.76-1.46)
== END | disposition home or self-care (01) ==
PROVIDERS: PCP Internal Medicine; Referring Provider Internal Medicine; Visit Provider Internal Medicine
DX: Z12.31 Encounter for screening mammogram for malignant neoplasm of breast (principal); Z80.3 Family history of malignant neoplasm of breast; I10 Essential (primary) hypertension; M35.3 Polymyalgia rheumatica; T88.1XXA Other complications following immunization, not elsewhere classified, initial encounter; Z13.220 Encounter for screening for lipoid disorders; D64.9 Anemia, unspecified; E03.9 Hypothyroidism, unspecified; E55.9 Vitamin D deficiency, unspecified
CPT/HCPCS: 36415; 77063; 77067; 80053; 80061; 82306; 82728; 83540; 83550; 83735; 84439; 84443; 84481; 85025

== ENCOUNTER → 2025-02-26 | Outpatient (CLI) | payer MEDICARE, SELFPAY ==
[2025-02-26 09:06] LABS: Free T3 3.1 pg/mL (2.18-3.98)
== END | disposition home or self-care (01) ==
LOC: LAB 07:55
PROVIDERS: PCP Internal Medicine; Referring Provider Internal Medicine; Visit Provider Internal Medicine
DX: E03.9 Hypothyroidism, unspecified (principal)
CPT/HCPCS: 36415; 84439; 84443; 84481